=== PATIENT | female | born 1995 | race Caucasian/White ===

== ENCOUNTER → 2021-11-29 | Outpatient (CLI) | payer OTHER ==
[2021-11-29 12:44] LABS: BASO # 0.04 K/mm3 (0.02-0.10); EOS # 0.14 K/mm3 (0.04-0.40); EOS % 1.3 % (1.0-5.0); HEMATOCRIT 43.2 % (37.0-47.0); HEMOGLOBIN 14.6 g/dL (12.5-16.0); LYMPH# 2.39 K/mm3 (1.50-4.00); MEAN CELL VOLUME 84 fl (78-100); MEAN CORPUSCULAR HEMOGLOBIN 28 pg (27-31); MEAN CORPUSCULAR HGB CONC 34 g/dL (33-37); MEAN PLATELET VOLUME 10.5 fl (7.4-10.4); PLATELET COUNT 328 K/mm3 (130-400); RED BLOOD COUNT 5.16 M/mm3 (4.10-5.30); RED CELL DISTRIBUTION WIDTH 12.9 % (11.5-14.5); WHITE BLOOD COUNT 10.7 K/mm3 (4.8-10.8)
[2021-11-29 12:58] LABS: POTASSIUM 3.9 mmol/L (3.5-5.1)
[2021-11-29 12:59] LABS: ALBUMIN 4.2 g/dL (3.5-5.0)
[2021-11-29 13:00] LABS: CALCIUM 9.4 mg/dL (8.3-10.5)
[2021-11-29 13:01] LABS: TOTAL PROTEIN 7.6 g/dL (6.4-8.3)
[2021-11-29 13:03] LABS: TOTAL BILIRUBIN 0.7 mg/dL (0.2-1.2)
== END ==
LOC: LAB 12:25
PROVIDERS: Internal Medicine
DX: Z00.00 Encounter for general adult medical examination without abnormal findings (principal); D66 Hereditary factor VIII deficiency; K90.9 Intestinal malabsorption, unspecified; E78.2 Mixed hyperlipidemia; E03.9 Hypothyroidism, unspecified

== ENCOUNTER 2022-01-13 20:44 | Emergency (ER) | payer OTHER ==
[~2022-01-13] VITALS: Ht 165.1 cm; Wt 125.9 kg
[2022-01-13] MEDS ORDERED: LORATADINE10 MG PO (20:55)
[2022-01-13] MEDS ORDERED: NATURAL IRON65 MG PO (20:55)
[2022-01-13] MEDS ORDERED: LANSOPRAZOLE30 M2 PO (20:56)
[2022-01-13] MEDS ORDERED: PAXIL CR25 M1 PO (20:56)
[2022-01-13] MEDS ORDERED: TAGAMET HB200 M1 PO (20:56)
[2022-01-13] MEDS ORDERED: L-THEANINE200 MG PO (21:14)
[2022-01-13 22:05] LABS: HEMATOCRIT 40.2 % (37.0-47.0); HEMOGLOBIN 14.2 g/dL (12.5-16.0); MEAN PLATELET VOLUME 10.7 fl (7.4-10.4); RED BLOOD COUNT 4.87 M/mm3 (4.10-5.30); WHITE BLOOD COUNT 11.4 K/mm3 (4.8-10.8)
[2022-01-13 22:17] LABS: POTASSIUM 3.3 mmol/L (3.5-5.1); SODIUM 140 mmol/L (136-145)
[2022-01-13 22:19] LABS: CALCIUM 9.2 mg/dL (8.3-10.5); GLUCOSE 94 mg/dL (65-105)
[2022-01-13 22:21] LABS: CARBON DIOXIDE 23 mmol/L (22-29)
[2022-01-13 22:34] LABS: TROPONIN-I < 0.030 ng/mL (<0.030)
[2022-01-13] MEDS ORDERED: POTASSIUM CHLO20 ME4 PO (22:46)
[2022-01-13 22:53] VITALS: BP 134/83
== END 2022-01-13 22:53 | disposition home or self-care (01) ==
LOC: ED 20:44
PROVIDERS: Family Medicine
DX: K58.9 Irritable bowel syndrome, unspecified (principal); E87.6 Hypokalemia; R55 Syncope and collapse

== ENCOUNTER 2022-01-16 16:42 | Emergency (ER) | payer OTHER ==
[~2022-01-16] VITALS: Ht 165.1 cm; Wt 125.9 kg
[~2022-01-16 16:42] MED LIST: L-THEANINE200 MG PO; LANSOPRAZOLE30 M2 PO; LORATADINE10 MG PO; NATURAL IRON65 MG PO; PAXIL CR25 M1 PO; POTASSIUM CHLO20 ME4 PO; TAGAMET HB200 M1 PO
[2022-01-16 17:40] LABS: BASO # 0.03 K/mm3 (0.02-0.10); EOS # 0.16 K/mm3 (0.04-0.40); EOS % 1.7 % (1.0-5.0); HEMATOCRIT 44.1 % (37.0-47.0); HEMOGLOBIN 14.9 g/dL (12.5-16.0); LYMPH# 2.54 K/mm3 (1.50-4.00); MEAN CELL VOLUME 84 fl (78-100); MEAN CORPUSCULAR HEMOGLOBIN 28 pg (27-31); MEAN CORPUSCULAR HGB CONC 34 g/dL (33-37); MEAN PLATELET VOLUME 10.8 fl (7.4-10.4); MONO # 0.68 K/mm3 (0.20-0.80); NEU # 6.08 K/mm3 (1.40-6.50); PLATELET COUNT 308 K/mm3 (130-400); RED BLOOD COUNT 5.28 M/mm3 (4.10-5.30); RED CELL DISTRIBUTION WIDTH 12.9 % (11.5-14.5); WHITE BLOOD COUNT 9.5 K/mm3 (4.8-10.8)
[2022-01-16 17:52] LABS: ALBUMIN 4.1 g/dL (3.5-5.0)
[2022-01-16 17:53] LABS: POTASSIUM 4.3 mmol/L (3.5-5.1)
[2022-01-16 17:58] LABS: CALCIUM 9.1 mg/dL (8.3-10.5)
[2022-01-16 18:01] LABS: TOTAL BILIRUBIN 0.7 mg/dL (0.2-1.2)
[2022-01-16 18:05] LABS: MAGNESIUM 2.08 mg/dL (1.60-2.60)
[2022-01-16 19:09] LABS: URINE APPEARANCE CLEAR; URINE BILIRUBIN NEGATIVE (NEGATIVE); URINE BLOOD NEGATIVE (NEGATIVE); URINE COLOR YELLOW; URINE GLUCOSE NEGATIVE (NEGATIVE); URINE KETONE NEGATIVE (NEGATIVE); URINE LEUKOCYTE ESTERASE NEGATIVE (NEGATIVE); URINE MUCUS PRESENT (NOT PRESENT); URINE NITRATE NEGATIVE (NEGATIVE); URINE PROTEIN(semi-quant) NEGATIVE (NEGATIVE); URINE UROBILINOGEN NORMAL (NORMAL)
[2022-01-16 19:28] VITALS: BP 142/75
== END 2022-01-16 19:28 | disposition home or self-care (01) ==
LOC: ED 16:42
PROVIDERS: Physician Assistant
DX: R55 Syncope and collapse (principal)
CPT/HCPCS: J1885

== ENCOUNTER → 2022-03-12 | Outpatient (CLI) | payer OTHER ==
[2022-03-12 23:01] LABS: T3 FREE 2.9 pg/mL (1.7-3.7)
== END ==
LOC: LAB 08:51
PROVIDERS: Internal Medicine
DX: B37.2 Candidiasis of skin and nail (principal); D66 Hereditary factor VIII deficiency; E03.9 Hypothyroidism, unspecified; K90.9 Intestinal malabsorption, unspecified; E55.9 Vitamin D deficiency, unspecified; F32.1 Major depressive disorder, single episode, moderate

== ENCOUNTER 2022-05-03 13:06 | Emergency (ER) | payer OTHER ==
[~2022-05-03] VITALS: Ht 165.1 cm; Wt 125.9 kg
[2022-05-03] MEDS ORDERED: TOPAMAX50 M1 PO (13:40)
[2022-05-03 13:47] VITALS: BP 135/75
== END 2022-05-03 14:58 | disposition home or self-care (01) ==
LOC: ED 13:06
DX: S61.216A Laceration without foreign body of right little finger without damage to nail, initial encounter (principal); Z91.040 Latex allergy status; W26.9XXA Contact with unspecified sharp object(s), initial encounter

== ENCOUNTER → 2022-05-07 | Outpatient (CLI) | payer OTHER ==
[~2022-05-07] MED LIST changes: +TOPAMAX50 M1 PO; +VITAMIN D350 MCG PO
== END ==
LOC: LAB 09:04
DX: B37.2 Candidiasis of skin and nail (principal); D66 Hereditary factor VIII deficiency; E03.9 Hypothyroidism, unspecified; K90.9 Intestinal malabsorption, unspecified; E55.9 Vitamin D deficiency, unspecified; F32.1 Major depressive disorder, single episode, moderate; K64.4 Residual hemorrhoidal skin tags; G43.019 Migraine without aura, intractable, without status migrainosus; R73.03 Prediabetes; R32 Unspecified urinary incontinence; R55 Syncope and collapse

== ENCOUNTER 2022-05-10 21:29 | Emergency (ER) | payer OTHER ==
[~2022-05-10 21:29] MED LIST changes: -VITAMIN D350 MCG PO
[2022-05-10] MEDS ORDERED: VITAMIN D350 MCG PO (21:43)
[2022-05-10 22:51] VITALS: BP 136/90
== END 2022-05-10 22:52 | disposition home or self-care (01) ==
LOC: ED 21:29
DX: R51.9 Headache, unspecified (principal); Z86.69 Personal history of other diseases of the nervous system and sense organs; Z91.040 Latex allergy status; Z28.310 Unvaccinated for COVID-19
CPT/HCPCS: J1885; J2550

== ENCOUNTER → 2022-07-11 | Outpatient (CLI) | payer OTHER ==
[~2022-07-11] MED LIST changes: +VITAMIN D350 MCG PO
[2022-07-11 14:45] LABS: URINE APPEARANCE CLEAR; URINE BILIRUBIN NEGATIVE (NEGATIVE); URINE BLOOD NEGATIVE (NEGATIVE); URINE COLOR YELLOW; URINE GLUCOSE NEGATIVE (NEGATIVE); URINE KETONE NEGATIVE (NEGATIVE); URINE LEUKOCYTE ESTERASE 1+ (NEGATIVE); URINE NITRATE NEGATIVE (NEGATIVE); URINE PROTEIN(semi-quant) NEGATIVE (NEGATIVE); URINE UROBILINOGEN NORMAL (NORMAL)
== END ==
LOC: LAB 14:16
PROVIDERS: Internal Medicine
DX: N39.0 Urinary tract infection, site not specified (principal); K64.4 Residual hemorrhoidal skin tags; E55.9 Vitamin D deficiency, unspecified; E03.9 Hypothyroidism, unspecified; K90.9 Intestinal malabsorption, unspecified; F32.1 Major depressive disorder, single episode, moderate; G43.019 Migraine without aura, intractable, without status migrainosus; R73.03 Prediabetes

== ENCOUNTER → 2022-08-09 | Outpatient (CLI) | payer OTHER ==
[2022-08-09 08:14] LABS: ALBUMIN 3.8 g/dL (3.5-5.0); POTASSIUM 3.8 mmol/L (3.5-5.1)
[2022-08-09 08:15] LABS: CALCIUM 8.9 mg/dL (8.3-10.5)
[2022-08-09 08:16] LABS: TOTAL PROTEIN 6.9 g/dL (6.4-8.3)
[2022-08-09 08:17] LABS: BASO # 0.02 K/mm3 (0.02-0.10); EOS # 0.21 K/mm3 (0.04-0.40); EOS % 2.3 % (1.0-5.0); HEMATOCRIT 39.8 % (37.0-47.0); HEMOGLOBIN 13.5 g/dL (12.5-16.0); LYMPH# 1.98 K/mm3 (1.50-4.00); MEAN CELL VOLUME 87 fl (78-100); MEAN CORPUSCULAR HEMOGLOBIN 29 pg (27-31); MEAN CORPUSCULAR HGB CONC 34 g/dL (33-37); MEAN PLATELET VOLUME 10.7 fl (7.4-10.4); MONO # 0.58 K/mm3 (0.20-0.80); NEU # 6.18 K/mm3 (1.40-6.50); PLATELET COUNT 252 K/mm3 (130-400); RED CELL DISTRIBUTION WIDTH 13.2 % (11.5-14.5)
[2022-08-09 08:18] LABS: TOTAL BILIRUBIN 0.3 mg/dL (0.2-1.2)
== END ==
LOC: LAB 07:46
PROVIDERS: Internal Medicine
DX: R55 Syncope and collapse (principal); F32.1 Major depressive disorder, single episode, moderate; G43.019 Migraine without aura, intractable, without status migrainosus; K90.9 Intestinal malabsorption, unspecified; R73.03 Prediabetes; R32 Unspecified urinary incontinence; E03.9 Hypothyroidism, unspecified; E55.9 Vitamin D deficiency, unspecified; K64.4 Residual hemorrhoidal skin tags; E78.2 Mixed hyperlipidemia

== ENCOUNTER 2022-11-18 17:41 | Emergency (ER) | payer OTHER ==
[2022-11-18 19:28] LABS: BASO # 0.02 K/mm3 (0.02-0.10); EOS # 0.32 K/mm3 (0.04-0.40); EOS % 2.4 % (1.0-5.0); HEMOGLOBIN 13.9 g/dL (12.5-16.0); LYMPH# 2.92 K/mm3 (1.50-4.00); MEAN CELL VOLUME 89 fl (78-100); MEAN CORPUSCULAR HEMOGLOBIN 30 pg (27-31); MEAN CORPUSCULAR HGB CONC 34 g/dL (33-37); MEAN PLATELET VOLUME 10.3 fl (7.4-10.4); MONO # 0.68 K/mm3 (0.20-0.80); NEU # 9.52 K/mm3 (1.40-6.50); PLATELET COUNT 323 K/mm3 (130-400); RED BLOOD COUNT 4.63 M/mm3 (4.10-5.30); RED CELL DISTRIBUTION WIDTH 12.6 % (11.5-14.5); WHITE BLOOD COUNT 13.5 K/mm3 (4.8-10.8)
[2022-11-18 19:41] LABS: CALCIUM 9.2 mg/dL (8.3-10.5)
[2022-11-18 19:42] LABS: TOTAL PROTEIN 7.2 g/dL (6.4-8.3)
[2022-11-18 19:44] LABS: TOTAL BILIRUBIN 0.3 mg/dL (0.2-1.2)
[2022-11-18 20:22] LABS: URINE APPEARANCE HAZY; URINE BILIRUBIN NEGATIVE (NEGATIVE); URINE BLOOD NEGATIVE (NEGATIVE); URINE COLOR YELLOW; URINE GLUCOSE NEGATIVE (NEGATIVE); URINE KETONE NEGATIVE (NEGATIVE); URINE LEUKOCYTE ESTERASE NEGATIVE (NEGATIVE); URINE MUCUS PRESENT (NOT PRESENT); URINE NITRATE NEGATIVE (NEGATIVE); URINE PROTEIN(semi-quant) TRACE (NEGATIVE); URINE WBC 0-1 /hpf (0-3)
[2022-11-18 22:20] VITALS: BP 132/78
== END 2022-11-18 22:20 | disposition home or self-care (01) ==
LOC: ED 17:41
PROVIDERS: Nurse Practitioner
DX: R10.84 Generalized abdominal pain (principal); B34.9 Viral infection, unspecified; R50.9 Fever, unspecified; Z91.040 Latex allergy status; Z28.310 Unvaccinated for COVID-19; Z90.49 Acquired absence of other specified parts of digestive tract; Z20.822 Contact with and (suspected) exposure to COVID-19
CPT/HCPCS: J2405; Q9967

== ENCOUNTER → 2022-12-16 | Outpatient (CLI) | payer OTHER ==
[2022-12-16 09:59] LABS: BASO # 0.03 K/mm3 (0.02-0.10); EOS # 0.34 K/mm3 (0.04-0.40); EOS % 3.9 % (1.0-5.0); HEMATOCRIT 42.2 % (37.0-47.0); HEMOGLOBIN 14.5 g/dL (12.5-16.0); LYMPH# 2.19 K/mm3 (1.50-4.00); MEAN CELL VOLUME 87 fl (78-100); MEAN CORPUSCULAR HEMOGLOBIN 30 pg (27-31); MEAN CORPUSCULAR HGB CONC 34 g/dL (33-37); MEAN PLATELET VOLUME 10.3 fl (7.4-10.4); MONO # 0.51 K/mm3 (0.20-0.80); NEU # 5.53 K/mm3 (1.40-6.50); PLATELET COUNT 284 K/mm3 (130-400); RED BLOOD COUNT 4.84 M/mm3 (4.10-5.30); RED CELL DISTRIBUTION WIDTH 12.9 % (11.5-14.5); WHITE BLOOD COUNT 8.6 K/mm3 (4.8-10.8)
[2022-12-16 10:06] LABS: ALBUMIN 4.1 g/dL (3.5-5.0)
[2022-12-16 10:07] LABS: POTASSIUM 3.8 mmol/L (3.5-5.1)
[2022-12-16 10:08] LABS: CALCIUM 9.2 mg/dL (8.3-10.5)
[2022-12-16 10:09] LABS: TOTAL PROTEIN 7.5 g/dL (6.4-8.3)
[2022-12-16 10:11] LABS: TOTAL BILIRUBIN 0.4 mg/dL (0.2-1.2)
[2022-12-16 15:21] LABS: URINE APPEARANCE CLEAR; URINE COLOR YELLOW
[2022-12-16 15:22] LABS: URINE BILIRUBIN NEGATIVE (NEGATIVE); URINE BLOOD NEGATIVE (NEGATIVE); URINE GLUCOSE NEGATIVE (NEGATIVE); URINE KETONE NEGATIVE (NEGATIVE); URINE LEUKOCYTE ESTERASE NEGATIVE (NEGATIVE); URINE MUCUS PRESENT (NOT PRESENT); URINE NITRATE NEGATIVE (NEGATIVE); URINE PROTEIN(semi-quant) TRACE (NEGATIVE); URINE UROBILINOGEN NORMAL (NORMAL); URINE WBC 0-1 /hpf (0-3)
== END ==
LOC: LAB 09:26
PROVIDERS: Internal Medicine
DX: F32.1 Major depressive disorder, single episode, moderate (principal); G43.019 Migraine without aura, intractable, without status migrainosus; K90.9 Intestinal malabsorption, unspecified; E03.9 Hypothyroidism, unspecified; E55.9 Vitamin D deficiency, unspecified; K64.4 Residual hemorrhoidal skin tags; E78.2 Mixed hyperlipidemia; J01.90 Acute sinusitis, unspecified; R55 Syncope and collapse; R73.03 Prediabetes; R32 Unspecified urinary incontinence

== ENCOUNTER → 2023-02-14 | Outpatient (CLI) | payer OTHER ==
[2023-02-14 08:34] LABS: URINE APPEARANCE CLEAR; URINE COLOR YELLOW
[2023-02-14 08:35] LABS: URINE BILIRUBIN NEGATIVE (NEGATIVE); URINE BLOOD NEGATIVE (NEGATIVE); URINE GLUCOSE NEGATIVE (NEGATIVE); URINE KETONE NEGATIVE (NEGATIVE); URINE LEUKOCYTE ESTERASE NEGATIVE (NEGATIVE); URINE NITRATE NEGATIVE (NEGATIVE); URINE PROTEIN(semi-quant) TRACE (NEGATIVE); URINE UROBILINOGEN NORMAL (NORMAL)
== END ==
LOC: LAB 08:01
PROVIDERS: Internal Medicine
DX: N39.0 Urinary tract infection, site not specified (principal)